=== PATIENT | male | born 1970 ===

== ENCOUNTER → 2018-03-22 | Outpatient (CLI) | payer BC ==
--- NOTE | 2018-03-22 10:23 | RADIOLOGY REPORT (SQ) ---
EXAM DESCRIPTION: U/S ABDOMEN LIMITED W/O DOP COMPLETED DATE/TIME: 03/22/2018 9:29 am REASON FOR STUDY: R10.9 UNSPECIFIED ABDOMINAL PAIN R10.9 UNSPECIFIED ABDOMINAL PAIN COMPARISON: None. TECHNIQUE: Dynamic and static grayscale images acquired of the abdomen and recorded on PACS. Additio nal selected color Doppler and spectral images recorded. LIMITATIONS: The examination is limited due to the patient's body habitus and overlying bowel gas. FINDINGS: PANCREAS: The head of the pancreas is of normal echogenicity. The body and tail are subo ptimally visualized due to overlying bowel gas. LIVER: The liver measures 17.6 cm, at the upper limits of normal. Fatty liver. Visualization is li mited. LIVER VASCULATURE: The portal vein was not visualized. GALLBLADDER: Mild gallbladder sludge. The gallbladder wall measures 2.5 mm, normal wall thickness. No pericholecystic fluid. ULTRASOUND-DETECTED CHACON'S SIGN: Negative. INTRAHEPATIC DUCTS AND COMMON DUCT: CBD is not visualized sonographically. INFERIOR VENA CAVA: Normal flow. AORTA: No aneurysm. RIGHT KIDNEY: The right kidney measures 12.1 cm, normal size. Normal echogenicity. No solid or suspi cious masses. No hydronephrosis. No calcifications. PERITONEAL AND RIGHT PLEURAL SPACE: No ascites or effusions. OTHER: No other significant findings. IMPRESSION: 1 Limited examination due to the patient's body habitus and overlying bowel gas. The co mmon bile duct, portal vein and body/tail of the pancreas are suboptimally visualized. 2. Fatty liver. 3 Mild gallbladder sludge. TECHNICAL DOCUMENTATION: JOB ID: [id number] [employer]- All Rights Reserved Reading location - IP/workstation name: [email or web address]
== END ==
LOC: RAD 09:59
PROVIDERS: ATTEND Specialist
DX: R10.9 Unspecified abdominal pain (principal)
CPT/HCPCS: 76705